=== PATIENT | female | born 1985 | race Caucasian/White ===

== ENCOUNTER 2020-07-01 17:11 | Emergency (ER) | payer BC, OTHER ==
[~2020-07-01] VITALS: Ht 160 cm; Wt 118.2 kg
[2020-07-01 18:30] VITALS: BP 135/82
== END 2020-07-01 18:40 | disposition home or self-care (01) ==
LOC: EMS 17:15
DX: R00.2 Palpitations (principal); R00.0 Tachycardia, unspecified; F41.9 Anxiety disorder, unspecified
CPT/HCPCS: 93005; 99283